=== PATIENT | male | born 1930 | race Caucasian/White ===

== ENCOUNTER 2018-01-28 08:23 | Emergency (ER) | payer MEDICARE, OTHER ==
[2018-01-28 08:51] LABS: ADD MAN DIFF? NO
[2018-01-28 08:53] LABS: BASOPHILS % 0.8 % (0.0-2.0); EOSINOPHILS # 0.3 10^3/ul (0.0-0.5); EOSINOPHILS % 5.9 % (0.0-7.0); HEMOGLOBIN 14.3 g/dl (14.0-18.0); LYMPHOCYTES # 2.4 10^3/ul (0.8-2.9); LYMPHOCYTES % 50.3 % (15.0-51.0); MEAN CORPUSCULAR HEMOGLOBIN 32.2 pg (29.0-33.0); MEAN CORPUSCULAR VOLUME 94.6 fl (82.0-101.0); MEAN PLATELET VOLUME 8.7 fl (7.4-10.4); MONOCYTE # 0.5 10^3/ul (0.3-0.9); MONOCYTES % 11.1 % (0.0-11.0); NEUTROPHIL # 1.5 10^3/ul (1.6-7.5); NEUTROPHILS % 31.7 % (39.0-77.0); PLATELET COUNT 205 10^3/UL (140-415); RED BLOOD COUNT 4.44 10^6/ul (4.70-6.10); RED CELL DISTRIBUTION WIDTH 12.8 % (11.5-14.5)
[2018-01-28 08:53] LABS: WHITE BLOOD COUNT 4.8 10^3/ul (4.8-10.8)
[2018-01-28] MEDS: SOD CHLORIDE 0.9% 500 ML IV (09:08)
[2018-01-28] MEDS: KETOROLAC 30 MG INJ IV (09:10)
[2018-01-28 09:12] LABS: INR 0.99; PROTIME 13.2 Sec (11.9-14.9)
[2018-01-28 09:13] LABS: PARTIAL THROMBOPLASTIN TIME 32.6 Sec (23.0-35.0)
[2018-01-28 09:43] LABS: ANION GAP 14 (8-16); BLOOD UREA NITROGEN 28 mg/dl (7-20); CALCIUM 9.7 mg/dl (8.4-10.2); CARBON DIOXIDE 27 mmol/L (21-31); CHLORIDE 104 mmol/L (97-110); CREATININE 1.23 mg/dl (0.61-1.24); GLUCOSE 101 mg/dl (70-220); POTASSIUM 4.6 mmol/L (3.5-5.1); SODIUM 140 mmol/L (135-144)
[2018-01-28 09:54] LABS: TROPONIN-I < 0.012 ng/ml (0.000-0.120)
[2018-01-28] MEDS: IODIXANOL LOCM 100 ML BTL (10:16)
[2018-01-28] MEDS: SOD CHLORIDE 0.9% 100 ML (10:16)
== END 2018-01-28 11:22 | disposition home or self-care (01) ==
LOC: E/R 08:23
DX: R51 Headache (principal); I10 Essential (primary) hypertension; F17.210 Nicotine dependence, cigarettes, uncomplicated; I65.29 Occlusion and stenosis of unspecified carotid artery
CPT/HCPCS: 36415; 70450; 70496; 70498; 80048; 84484; 85025; 85610; 85730; 93005; 96374; 99285-25